=== PATIENT | female | born 1990 | race Caucasian/White ===

== ENCOUNTER 2020-08-28 17:04 | Outpatient (CLI) | payer BC ==
--- NOTE | 2020-08-28 18:49 | XRAY Report ---
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 COMPARISON: None. FINDINGS: Bones: No fractures or dislocations. No suspicious bony lesions. 12 pairs of ribs are noted, and a ppear intact where visualized. Soft tissues: No paravertebral stripe thickening. IMPRESSION: No osseous lesion. If there is continued clinical concern for pathology, then MRI should be considere d for further evaluation. Reviewed by: Coreen Villarreal MD, PhD on 08/28/2020 5:48 PM [facility] Approved by: Coreen Villarreal MD, PhD on 08/28/2020 5:48 PM [facility] Station ID: [id number]
--- NOTE | 2020-08-29 09:23 | XRAY Report ---
PROCEDURE: Cervical Spine 2 View INDICATIONS: SEGMENTAL AND SOMATIC DYSFUNCTION OF CERVICAL ELIE TECHNIQUE: 3 view(s) of the cervical spine were acquired. COMPARISON: None. FINDINGS: Bones: No fractures or dislocations to the T1 level. There is loss of normal cervical lordosis but n o subluxation. Mild disc height loss at C5-6. The lateral masses of C1 appear intact on the odontoid view. No suspicious bony lesions. Soft tissues: No prevertebral soft tissue swelling. IMPRESSION: 1. Loss of cervical lordosis may be secondary to muscle spasm. 2. Mild disc height loss at C5-6. Reviewed by: Elizabeth Sampson MD on 08/29/2020 9:21 AM PST Approved by: Elizabeth Sampson MD on 08/29/2020 9:21 AM PST Station ID: [id number]
--- NOTE | 2020-08-29 09:24 | XRAY Report ---
PROCEDURE: Lumbar Spine 2 View INDICATIONS: SEGMENTAL SOMATIC DYSFUNCTION OFLUMBOPELVICREGI TECHNIQUE: 2 views of the lumbar spine were acquired. COMPARISON: None. FINDINGS: Bones: 5 [id number] vertebrae are present. There is normal bony alignment. No vertebral body compression fractures. No suspicious bony lesions. Soft tissues: Overlying bowel gas pattern is normal. No suspicious soft tissue calcifications. IMPRESSION: 1. Normal lumbar spine. 2. If there is continued concern for soft tissue injury, MRI of the lumbar spine is recommended. Reviewed by: Elizabeth Sampson MD on 08/29/2020 9:23 AM [facility] Approved by: Elizabeth Sampson MD on 08/29/2020 9:23 AM [facility] Station ID: [id number]
== END 2020-08-28 17:05 | disposition home or self-care (01) ==
LOC: DI 17:04
DX: M50.322 Other cervical disc degeneration at C5-C6 level (principal); M99.02 Segmental and somatic dysfunction of thoracic region; M99.03 Segmental and somatic dysfunction of lumbar region; M99.04 Segmental and somatic dysfunction of sacral region; M99.05 Segmental and somatic dysfunction of pelvic region; M54.6 Pain in thoracic spine; M54.5 Low back pain